=== PATIENT | male | born 1970 | race Caucasian/White ===

== ENCOUNTER 2017-03-09 00:10 | Emergency (ER) | payer OTHER ==
[~2017-03-09] VITALS: Ht 182.9 cm; Wt 85.0 kg
[~2017-03-09 00:10] MED LIST: ALBU6.7H INH; AZIT250T43 PO; BACT800T5 PO; FLUT1SPR9 EACH NARE; LEVA500T PO; PRED-1 PO; ZITH250T PO
[2017-03-09 00:13] VITALS: BP 132/75; PULSE 79; RESP 15; TEMP 98.1; O2SAT 99
--- NOTE | 2017-03-09 01:18 | PD ---
HPI Chief Complaint: Injury Time Seen by Provider: 01:02 Travel History International Travel<30 days: No Contact w/Intl Traveler<30days: No Traveled to known affect area: No History of Present Illness HPI 47-year-old [id number]-ntixokzl white male presents to emergency Department with complaints of right elbow pain. The patient states that he was not feeling well this evening. When he had gotten up to go to the bathroom he noticed that he was having some dizziness, tunnel vision, some chest discomfort and felt that he might pass out. He states that he attempted to grab onto something with his right hand injuring his right elbow. He states that he did not lose consciousness but felt he was very close. He denies any shortness of breath, nausea, vomiting, diaphoresis, bowel pain. No incontinence of urine or stool. No seizure activity. He denies any numbness or tingling. He is now feeling better. He denies any active chest pain now. No dizziness. He does admit to feeling anxious at the time. He has history of anxiety and depression. Patient also has had a history of substance abuse. He claims that he's been sober now for several years. Pain is moderate in his elbow. No alleviating factor. PFSH Past Medical History Asthma: Yes Autoimmune Disease: No Anxiety: Yes Depression: Yes Cancer: No Cardiovascular Problems: Yes (CT) High Cholesterol: Yes COPD: Yes Diminished Hearing: Yes (RIGHT) Endocrine: No Gastrointestinal Disorders: Yes Genitourinary: No Hypertension: Yes Immune Disorder: No Musculoskeletal: Yes Neurologic: Yes Psychiatric: Yes Reproductive: No Respiratory: Yes (ASTHMA) Immunizations Current: Yes Migraines: Yes Ulcer: Yes Past Surgical History Abdominal Surgery: Yes (APPEND.) Appendectomy: Yes Body Medical Devices: PIN AND SCREWS RIGHT RING FINGER Neurologic Surgery: Yes (ANTERIOR C5 C6 FUSION 2010) Other Surgery: Yes Social History Alcohol Use: No Tobacco Use: Yes (2 1/2 pack a day ) Substance Use: Yes (iv abuse of oxycontin. MARIJUANA) Allergies-Medications (Allergen,Severity, Reaction): Coded Allergies: codeine (Unverified Allergy, Severe, HIVES, 03/09/17) penicillin G (Unverified Allergy, Severe, Anaphylaxis, 03/09/17) Reported Meds & Prescriptions Reported Meds & Active Scripts Active Diclofenac Sodium DR (Diclofenac Sodium) 75 Mg Tabdr 75 Mg PO BID Flonase Allergy Relief Ch (Fluticasone Propionate (Nasal)) 50 Mcg/Act Spr 2 [place] EACH NARE DAILY Levaquin 500 Mg Tab (Levofloxacin) 500 Mg Tab 500 Mg PO DAILY Azithromycin 250 Mg Tab 250 Mg PO DAILY Zithromax Z-Isiah (Azithromycin) 250 Mg Tab 250 Mg PO DIRECTED 500 MG (2 TABLETS) PO ON DAY 1, THEN 250 MG (1 TABLET) PO ON DAYS 2 TO 5. Reported Prednisolone 5 Mg Tab 5 Mg PO TID Bactrim DS (Sulfamethoxazole-Trimethoprim DS) 1 Tab Tab 1 Tab PO BID Proventil Hfa (Albuterol Sulfate) 6.7 Gm Aero 2 Puff INH Q4HPRN * SHAKE WELL BEFORE USE * Review of Systems Except as stated in HPI: all other systems reviewed are Neg General / Constitutional: No: Fever, Chills Eyes: Positive: Blurred Vision, Visual changes, Other (television) HENT: Positive: Vertigo, Lightheadedness, No: Headaches, Neck Pain Cardiovascular: Positive: Chest Pain or Discomfort, No: Palpitations, Irregular Rhythm, Tachycardia Respiratory: No: Cough, Shortness of Breath Gastrointestinal: No: Nausea, Vomiting Genitourinary: No: Frequency, Dysuria Musculoskeletal: Positive: Arthralgias, Limited ROM, Edema, Pain Skin: No Rash, No Itching Neurologic: Positive: Weakness, Dizziness, No: Syncope, Headache, Change in Mentation, Paresthesia Psychiatric: Positive: Anxiety, No: Depression, Substance Abuse Physical Exam Narrative GENERAL: Well-developed, well-nourished in no apparent distress. Nontoxic appearing. HEAD: Normocephalic, atraumatic. EYES: Pupils equal round and reactive. Extraocular motions intact. No scleral icterus. No injection or drainage. ENT: Nose clear. Throat without erythema, tonsillar hypertrophy or exudate. Uvula midline. Airway patent. NECK: Trachea midline. Supple, nontender, moves head freely. No central bony tenderness or spasm. CARDIOVASCULAR: Regular rate and rhythm without murmurs, gallops, or rubs. RESPIRATORY: Clear to auscultation. Breath sounds equal bilaterally. No wheezes , rales, or rhonchi. GASTROINTESTINAL: Abdomen soft, non-tender, nondistended. No hepato-splenomegaly , or palpable masses. No guarding. EXTREMITIES: No clubbing, cyanosis, examination of the right upper extremity reveals a joint effusion in his elbow. He has global decreased range of motion. He holds it at 120. No pain in the shoulder, clavicle, wrist or hand. He has intact median/ulnar/radial nerves. Good pulses and Refill. The left upper try as well as lower extremities are without localizing bony tenderness or deformity. BACK: Nontender without deformity. No flank tenderness. NEUROLOGICAL: Awake, alert and oriented x 3 .Cranial nerves grossly intact. Motor and sensory grossly within normal limits. Normal speech. Data Data Last Documented VS Vital Signs Date Time Temp Pulse Resp B/P (MAP) Pulse Ox O2 Delivery O2 Flow Rate FiO2 03/09/17 00:13 98.1 79 15 132/75 (94) 99 Room Air Orders Orders Electrocardiogram (03/09/17 01:02) Complete Blood Count With Diff (03/09/17 01:02) Basic Metabolic Panel (Bmp) (03/09/17 01:02) Troponin I (03/09/17 01:02) Iv Access Insert/Monitor (03/09/17 01:02) Ecg Monitoring (03/09/17 01:02) Elbow, Complete (4 Vws) (03/09/17 01:02) Ice/Cold Pack (03/09/17 01:02) Splint Or Brace Apply/Monitor (03/09/17 02:01) Ed Discharge Order (03/09/17 02:01) Ketorolac Inj (Toradol Inj) (03/09/17 02:15) Labs Laboratory Tests Test 03/09/17 01:20 White Blood Count 6.8 TH/MM3 Red Blood Count 4.60 MIL/MM3 Hemoglobin 14.2 GM/DL Hematocrit 42.0 % Mean Corpuscular Volume 91.2 FL Mean Corpuscular Hemoglobin 30.8 PG Mean Corpuscular Hemoglobin Concent 33.8 % Red Cell Distribution Width 14.1 % Platelet Count 275 TH/MM3 Mean Platelet Volume 7.8 FL Neutrophils (%) (Auto) 59.5 % Lymphocytes (%) (Auto) 27.3 % Monocytes (%) (Auto) 9.1 % Eosinophils (%) (Auto) 3.7 % Basophils (%) (Auto) 0.4 % Neutrophils # (Auto) 4.1 TH/MM3 Lymphocytes # (Auto) 1.9 TH/MM3 Monocytes # (Auto) 0.6 TH/MM3 Eosinophils # (Auto) 0.2 TH/MM3 Basophils # (Auto) 0.0 TH/MM3 CBC Comment DIFF FINAL Differential Comment Blood Urea Nitrogen 11 MG/DL Creatinine 0.96 MG/DL Random Glucose 77 MG/DL Calcium Level 8.8 MG/DL Sodium Level 140 MEQ/L Potassium Level 3.6 MEQ/L Chloride Level 106 MEQ/L Carbon Dioxide Level 29.0 MEQ/L Anion Gap 5 MEQ/L Estimat Glomerular Filtration Rate 84 ML/MIN Troponin I LESS THAN 0.02 NG/ML MDM Medical Decision Making Medical Screen Exam Complete: Yes Emergency Medical Condition: Yes Medical Record Reviewed: Yes Interpretation(s) Laboratory Tests Test 03/09/17 01:20 White Blood Count 6.8 TH/MM3 Red Blood Count 4.60 MIL/MM3 Hemoglobin 14.2 GM/DL Hematocrit 42.0 % Mean Corpuscular Volume 91.2 FL Mean Corpuscular Hemoglobin 30.8 PG Mean Corpuscular Hemoglobin Concent 33.8 % Red Cell Distribution Width 14.1 % Platelet Count 275 TH/MM3 Mean Platelet Volume 7.8 FL Neutrophils (%) (Auto) 59.5 % Lymphocytes (%) (Auto) 27.3 % Monocytes (%) (Auto) 9.1 % Eosinophils (%) (Auto) 3.7 % Basophils (%) (Auto) 0.4 % Neutrophils # (Auto) 4.1 TH/MM3 Lymphocytes # (Auto) 1.9 TH/MM3 Monocytes # (Auto) 0.6 TH/MM3 Eosinophils # (Auto) 0.2 TH/MM3 Basophils # (Auto) 0.0 TH/MM3 CBC Comment DIFF FINAL Differential Comment Blood Urea Nitrogen 11 MG/DL Creatinine 0.96 MG/DL Random Glucose 77 MG/DL Calcium Level 8.8 MG/DL Sodium Level 140 MEQ/L Potassium Level 3.6 MEQ/L Chloride Level 106 MEQ/L Carbon Dioxide Level 29.0 MEQ/L Anion Gap 5 MEQ/L Estimat Glomerular Filtration Rate 84 ML/MIN Troponin I LESS THAN 0.02 NG/ML EKG: Sinus bradycardia with a ventricular rate of 54. Normal AK and QT interval. Normal axis. There is a questionable Q in lead 3. This is compared to EKGs in the past which are unchanged. No ST elevation or ST depression. Right elbow: Negative for acute fracture. There is evidence of prior fracture with degenerative changes. He also has metallic foreign bodies in the skin consistent with needles from IV substance abuse. There is no joint effusion. No anterior fat pad. Differential Diagnosis Differential diagnoses: Anxiety, vertigo, dizziness, angina, fracture, sprain, strain, likely abnormality Narrative Course IV access is obtained. Patient's place on a monitor. Icepack applied to the elbow. Patient's given Toradol 30 mg IV for pain. Sling. Patient's laboratory testing are reassuring. His troponin is negative. His EKG is unchanged from his prior EKG and has no abnormal ST-T wave changes. Patient's symptoms are most consistent with an elbow contusions/sprain as well as dizziness. Patient is medically stable for discharge. His right elbow contusion/sprain, dizziness Diagnosis Primary Impression: right elbow contusion/sprain Additional Impression: Dizziness, nonspecific Patient Instructions: General Instructions Additional Instructions: Rest. Ice for the next 3 days followed by heat . Sling. Voltaren. Follow-up with a primary care doctor in one week. Return to the ER for emergencies. Med/Other Pt SpecificInfo: Prescription(s) given Scripts Diclofenac Sodium DR (Diclofenac Sodium DR) 75 Mg Tabdr 75 MG PO BID, #20 TAB 0 Refills Prov: Wilian Michaud MD 03/09/17 Disposition: 01 DISCHARGE HOME Condition: Stable Marcos Zarate Mar 09, 2017 01:18
[2017-03-09 01:38] LABS: AUTOMATED NEUTROPHIL # 4.1 TH/MM3 (1.8-7.7); BASOPHIL % 0.4 % (0.0-2.0); EOSINOPHIL # 0.2 TH/MM3 (0-0.4); EOSINOPHIL % 3.7 % (0.0-4.0); HEMO FLAGS DIFF FINAL; LYMPH % 27.3 % (9.0-44.0); LYMPHOCYTE # 1.9 TH/MM3 (1.0-4.8); MEAN CELL VOLUME 91.2 FL (80.0-100.0); MEAN CORPUSCULAR HEMOGLOBIN 30.8 PG (27.0-34.0); MEAN CORPUSCULAR HGB CONC 33.8 % (32.0-36.0); MONO % 9.1 % (0.0-8.0); NEUT % 59.5 % (16.0-70.0); PLATELET COUNT 275 TH/MM3 (150-450); RED CELL DISTRIBUTION WIDTH 14.1 % (11.6-17.2); WHITE BLOOD COUNT 6.8 TH/MM3 (4.0-11.0)
--- NOTE | 2017-03-09 01:54 | RADRPT ---
EXAM DATE/TIME: 03/09/2017 01:11 [facility] COMPARISON: No previous studies available for comparison. INDICATIONS : Pt was dizzy and fell onto right elbow MEDICAL HISTORY : None. SURGICAL HISTORY : None. ENCOUNTER: Initial ACUITY: 1 day PAIN SCORE: 7/10 LOCATION: Right Elbow FINDINGS: There is premature osteoarthritis of the radiocapitellar joint with accessory ossicles around the bill nt probably related to prior fracture. There is also mild osteoarthritis at the humeroulnar joint. No acute fracture is seen. No significant joint effusion. Small metallic linear fragment in the superfi cial soft tissues. CONCLUSION: 1. Premature osteoarthritis of the radiocapitellar joint with accessory ossicles at the lateral capit ellum probably related to prior fracture with nonunion. 2. Small metallic linear fragment in the soft tissues could represent a tiny needle fragment. Marcos Bradford MD on March 09, 2017 at 1:50 Board Certified Radiologist. This report was verified electronically.
[2017-03-09 02:00] LABS: ANION GAP 5 MEQ/L (5-15); BLOOD UREA NITROGEN 11 MG/DL (7-18); CHLORIDE 106 MEQ/L (98-107); GLOMERULAR FILTRATION RATE 84 ML/MIN (>89); POTASSIUM 3.6 MEQ/L (3.5-5.1); SODIUM (NA) 140 MEQ/L (136-145)
[2017-03-09] MEDS ORDERED: DICL75TA PO (02:03)
[2017-03-09] MEDS ORDERED: KETOROLAC TROMETHAMINE 30 MG/ML (IVP) VIAL IV PUSH ONE (02:15)
[2017-03-09 02:42] VITALS: BP 110/55
[2017-03-09 03:20] VITALS: RESP 16
--- NOTE | 2017-03-09 09:07 | EKG ---
Date Performed: 03/09/2017 Time Performed: 01:11:38 PTAGE: 47 years EKG: SINUS BRADYCARDIA BORDERLINE ECG PREVIOUS TRACING : 09/26/2013 07.25 No significant change from previous tracing noted. DOCTOR: Landon Ellington Interpretating Date/Time 03/09/2017 09:06:57
== END 2017-03-09 03:17 | disposition home or self-care (01) ==
LOC: NEPD 00:10
DX: S53.401A Unspecified sprain of right elbow, initial encounter (principal); R42 Dizziness and giddiness; F41.9 Anxiety disorder, unspecified; F32.9 Major depressive disorder, single episode, unspecified; J45.909 Unspecified asthma, uncomplicated; J44.9 Chronic obstructive pulmonary disease, unspecified; E78.5 Hyperlipidemia, unspecified; I25.2 Old myocardial infarction; I10 Essential (primary) hypertension; F17.200 Nicotine dependence, unspecified, uncomplicated; Z88.0 Allergy status to penicillin; X58.XXXA Exposure to other specified factors, initial encounter; Z79.899 Other long term (current) drug therapy
CPT/HCPCS: 73080; 80048; 84484; 85025; 93005; 96374; 99284; J1885

== ENCOUNTER 2017-11-12 20:14 | Emergency (ER) | payer MEDICAID, OTHER ==
[~2017-11-12] VITALS: Ht 182.9 cm; Wt 73.0 kg
[~2017-11-12 20:14] MED LIST changes: +DICL75TA PO
[2017-11-12 20:40] VITALS: BP 121/70; PULSE 86; RESP 16; TEMP 98.3; O2SAT 98
[2017-11-12] MEDS ORDERED: ACETAMINOPHEN 1000 MG/100 ML 100 ML IV ONE (20:45)
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
--- NOTE | 2017-11-12 21:39 | RADRPT ---
EXAM DATE: 11/12/2017 9:28 PM EDT AGE/SEX: 47 years / Male INDICATIONS: Trauma, attacked by dog today. CLINICAL DATA: This is the patient's initial encounter. Patient reports that signs and symptoms have been present for 1 day and indicates a pain score of 7/10. MEDICAL/SURGICAL HISTORY: Hypertension. Fusion, cervical. RADIATION DOSE: 66.34 CTDI (mGy) COMPARISON: [facility] [place], CT BRAIN W/O CONTRAST, 11/02/2015. . TECHNIQUE: CT of the head without contrast. Using automated exposure control and adjustment of the mA and/or kV according to patient size, radiation dose was kept as low as reasonably achievable to ob tain optimal diagnostic quality images. DICOM format image data is available electronically for revi ew and comparison. FINDINGS: Cerebrum: The ventricles are normal for age. No evidence of midline shift, mass lesion, hemorrhage or acute infarction. No extraaxial fluid collections are seen. Posterior Fossa: The cerebellum and brainstem are intact. The 4th ventricle is midline. The cerebe llopontine angle is unremarkable. Extracranial: The visualized portion of the orbits is intact. Skull: The calvaria is intact. No evidence of skull fracture. CONCLUSION: 1. No acute intracranial abnormalities. Asymmetry in size of the frontal horns of the lateral ventri giancarlo is stable October 2015. Electronically signed by: Marcos Bradford MD 11/12/2017 9:37 PM EDT
--- NOTE | 2017-11-12 21:42 | RADRPT ---
EXAM DATE: 11/12/2017 9:32 PM EDT AGE/SEX: 47 years / Male INDICATIONS: Trauma, attacked by dog today. CLINICAL DATA: This is the patient's initial encounter. Patient reports that signs and symptoms have been present for 1 day and indicates a pain score of 7/10. MEDICAL/SURGICAL HISTORY: Hypertension. Fusion, cervical. RADIATION DOSE: 19.78 CTDI (mGy) COMPARISON: No prior exams available for comparison. TECHNIQUE: Contiguous axial images were obtained using helical multirow detector technique. The vol umetric data was post-processed with multiplanar reconstruction in oblique axial, sagittal, and coron al planes. Using automated exposure control and adjustment of the mA and/or kV according to patient s ize, radiation dose was kept as low as reasonably achievable to obtain optimal diagnostic quality philip ges. DICOM format image data is available electronically for review and comparison. FINDINGS: There is anterior plate and screw fixation across C5-6. No significant bony canal stenosis. No acute fracture or spondylolisthesis. Mild facet arthropathy. CONCLUSION: 1. No acute findings. Previous fusion C5-6. Electronically signed by: Marcos Bradford MD 11/12/2017 9:40 PM EDT
--- NOTE | 2017-11-12 21:51 | RADRPT ---
EXAM DATE: 11/12/2017 9:30 PM EDT AGE/SEX: 47 years / Male INDICATIONS: Right elbow pain after being chased and bitten by a dog. CLINICAL DATA: This is the patient's initial encounter. Patient reports that signs and symptoms have been present for 1 day and indicates a pain score of 10/10. MEDICAL/SURGICAL HISTORY: None. None. COMPARISON: [facility] [place] RIGHT COMPLETE (4 VWS), 03/09/2017. . FINDINGS: Comparison is February 2017. Again seen is premature osteoarthritis of the radiocapitellar joint with accessory ossicles around the joint probably related to prior fracture. There is also mild lateral saldana bluxation at the radiocapitellar joint. Mild osteoarthritis at the humeral ulnar joint. No acute frac ture. 2 small linear metallic fragments are present in the superficial soft tissues of the antecubita l region. CONCLUSION: Chronic changes in the right elbow as above. No definite acute fracture. Electronically signed by: Marcos Bradford MD 11/12/2017 9:50 PM EDT
--- NOTE | 2017-11-12 21:54 | RADRPT ---
EXAM DATE: 11/12/2017 9:31 PM EDT AGE/SEX: 47 years / Male INDICATIONS: Left knee pain after being chased by dog and bitten. CLINICAL DATA: This is the patient's initial encounter. Patient reports that signs and symptoms have been present for 1 day and indicates a pain score of 4/10. MEDICAL/SURGICAL HISTORY: None. None. COMPARISON: No prior exams available for comparison. FINDINGS: Bony structures are intact and in normal alignment. Joints are intact without dislocation or signifi cant arthropathy. Osseous density is normal. Soft tissues are unremarkable. No radiopaque foreign bodies seen. CONCLUSION: No acute findings. Electronically signed by: Marcos Bradford MD 11/12/2017 9:52 PM EDT
[2017-11-12] MEDS ORDERED: LIDOCAINE 1%/EPINEPHrine 1:100,000 SOLN 20 ML VIAL INFIL ONE (22:00)
[2017-11-12] MEDS ORDERED: LIDOCAINE 1%/EPINEPHrine 1:100,000 SOLN 50 ML VIAL ONE (22:04)
[2017-11-12] MEDS ORDERED: BACT800T5 PO (22:26)
[2017-11-12] MEDS ORDERED: CLIN300C5 PO (22:26)
[2017-11-12] MEDS ORDERED: CLINDAMYCIN 150 MG CAP PO ONE (22:30)
[2017-11-12] MEDS ORDERED: SULFAMETHOXAZOLE-TRIMETHOPRIM DS 800-160 MG TAB PO ONE (22:30)
== END 2017-11-12 22:51 | disposition home or self-care (01) ==
LOC: NEPD 20:14
DX: S31.825A Open bite of left buttock, initial encounter (principal); S59.901A Unspecified injury of right elbow, initial encounter; R51 Headache; M54.2 Cervicalgia; M25.562 Pain in left knee; I25.10 Atherosclerotic heart disease of native coronary artery without angina pectoris; J44.9 Chronic obstructive pulmonary disease, unspecified; F17.200 Nicotine dependence, unspecified, uncomplicated; W54.0XXA Bitten by dog, initial encounter; Y93.02 Activity, running
CPT/HCPCS: 12001; 70450; 72125; 73070; 73560; 96365; 99284; J0131